=== PATIENT | female | born 1950 | race Two or more races ===

== ENCOUNTER 2017-01-09 23:32 | Inpatient (IN) | payer MEDICARE, BC ==
[~2017-01-09] VITALS: Ht 154.9 cm; Wt 64.4 kg
--- NOTE | 2017-01-09 23:38 | NUR ---
PT A/OX4 BREATHING EFFORTLESSLY ON ROOM AIR, PT STATES SHE HAD LEFT SIDED FACE NUMBNESS GOING DOWN HER LEFT ARM AND THEN IT WENT AWAY, PT DENIES ANY PAIN OR NUMBNESS AT THIS TIME AND STATES SHE FEELS PERFECTLY FINE, MD MADE AWARE WILL CONTINEU TO MONITOR.
[2017-01-10 00:09] LABS: BASOPHILS % (AUTO) 0.3 % (0.0-2.0); EOSINOPHILS # (AUTO) 0.1 /CMM (0.0-0.7); EOSINOPHILS % (AUTO) 1.3 % (0.0-6.0); HEMATOCRIT 42 % (33-45); HEMOGLOBIN 14.1 g/dL (11.5-14.8); LYMPHOCYTES # (AUTO) 1.8 /CMM (0.8-4.8); MEAN CORPUSCULAR HEMOGLOBIN 29 PG (26.0-33.0); MEAN CORPUSCULAR HGB CONC 34 g/dl (31.0-36.0); MEAN CORPUSCULAR VOLUME 87 fL (82-100); MONOCYTES # (AUTO) 0.4 /CMM (0.1-1.30); MONOCYTES % (AUTO) 3.6 % (2.0-12.0); NEUTROPHILS # (AUTO) 8.7 /CMM (1.8-8.9); NEUTROPHILS % (AUTO) 78.8 % (43.0-81.0); PLATELET COUNT (AUTO) 200 /CMM (150-450); RDW COEFFICIENT OF VARIATION 13.1 (11.5-15.0)
[2017-01-10 00:21] LABS: CALCIUM, SERUM 8.6 mg/dL (8.5-10.1); CARBON DIOXIDE 27 mmol/L (21-32); CHLORIDE 104 mmol/L (98-107); CREATININE 0.7 mg/dL (0.6-1.3); GFR 84 mL/min (>60); GLUCOSE 145 mg/dL (74-106); POTASSIUM 4.1 mmol/L (3.5-5.1); SODIUM SERUM 139 mmol/L (136-145); UREA NITROGEN, BLOOD 20 mg/dL (7-18)
--- NOTE | 2017-01-10 00:22 | NUR ---
PT WENT TO CT
[2017-01-10 00:28] LABS: INR 0.93 (0.87-1.13)
[2017-01-10 00:29] LABS: TROPONIN I < 0.017 ng/mL (0.00-0.056)
[2017-01-10] MEDS ORDERED: MAG HYDROX/AL HYDROX/SIMETH 30 ML UDC PO PRN (00:30)
[2017-01-10] MEDS ORDERED: MAGNESIUM HYDROXIDE 30 ML UDC PO PRN (00:30)
[2017-01-10] MEDS ORDERED: HYDROCODONE/APAP 5/325MG 1 EACH TABLET PO PRN (00:30)
[2017-01-10] MEDS ORDERED: Z GUARD REMEDY 2 OZ OINT TP PRN (00:30)
[2017-01-10] MEDS ORDERED: TEMAZEPAM 15 MG CAPSULE PO PRN (00:30)
[2017-01-10] MEDS ORDERED: ONDANSETRON HCL/PF 4 MG/2 ML VIAL IVP PRN (00:30)
[2017-01-10] MEDS ORDERED: ACETAMINOPHEN 325 MG TABLET PO PRN (00:30)
[2017-01-10] MEDS ORDERED: ENOXAPARIN SODIUM 40 MG/0.4 ML DISP.SYRIN SQ SCH ×2 (00:30→21:00)
[2017-01-10] MEDS ORDERED: ASPI-605 PO (00:49)
[2017-01-10] MEDS ORDERED: ATOR20TA PO (00:49)
[2017-01-10] MEDS ORDERED: HYDROCODONE/APAP 5/325MG 1 EACH TABLET ONE (01:01)
[2017-01-10 01:41] LABS: CANNABINOID, URINE NEGATIVE (NEGATIVE); PHENCYCLIDINE SCREEN,URINE NEGATIVE (NEGATIVE)
[2017-01-10] MEDS ORDERED: ENOXAPARIN SODIUM 40 MG/0.4 ML DISP.SYRIN SQ ONE (01:43)
--- NOTE | 2017-01-10 02:13 | NUR ---
RN NOTES: 00:45 RECEIVED PATIENT FROM ER WITH A DIAGNOSIS OF TRANSIENT CEREBRAL ISCHEMIC ATTACK. 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 NORMAL VITAL SIGNS. INTERVIEW WITH THE PATIENT AND ADMISSION PACKAGE ARE DONE. PHYSICAL ASSESSMENT IS DONE. WILL CONTINUE TO MONITOR.
[2017-01-10 04:00] VITALS: BP 114/73
[2017-01-10 06:55] LABS: BASOPHILS % (AUTO) 0.4 % (0.0-2.0); HEMATOCRIT 41 % (33-45); HEMOGLOBIN 14.1 g/dL (11.5-14.8); LYMPHOCYTES # (AUTO) 1.8 /CMM (0.8-4.8); LYMPHOCYTES % (AUTO) 19.2 % (20.0-44.0); MEAN CORPUSCULAR HEMOGLOBIN 30 PG (26.0-33.0); MEAN CORPUSCULAR HGB CONC 34 g/dl (31.0-36.0); MEAN CORPUSCULAR VOLUME 88 fL (82-100); MONOCYTES # (AUTO) 0.2 /CMM (0.1-1.30); MONOCYTES % (AUTO) 2.4 % (2.0-12.0); NEUTROPHILS # (AUTO) 7.2 /CMM (1.8-8.9); PLATELET COUNT (AUTO) 192 /CMM (150-450); RDW COEFFICIENT OF VARIATION 13.4 (11.5-15.0); RED BLOOD CELL COUNT(AUTO) 4.71 MIL/uL (4.0-5.2); WHITE BLOOD COUNT (AUTO) 9.2 K/uL (4.3-11.0)
[2017-01-10 07:03] LABS: CALCIUM, SERUM 8.6 mg/dL (8.5-10.1); CREATININE 0.7 mg/dL (0.6-1.3); MAGNESIUM 1.7 mg/dL (1.8-2.4); PHOSPHORUS 3.7 mg/dL (2.5-4.9)
[2017-01-10 07:12] LABS: THYROID STIMULATING HORMONE 0.661 uIU/mL (0.358-3.74)
[2017-01-10] MEDS ORDERED: PANTOPRAZOLE 40 MG TABLET.DR PO SCH (07:30)
[2017-01-10 08:00] VITALS: BP 103/61
[2017-01-10] MEDS ORDERED: ASPIRIN 325 MG TABLET PO SCH (09:00)
[2017-01-10 10:00] VITALS: BP 95/38
[2017-01-10] MEDS ORDERED: IV NS 0.9% 1,000 ML IV PRN (10:00)
[2017-01-10] MEDS ORDERED: CARVEDILOL 3.125 MG TABLET PO SCH (10:00)
[2017-01-10] MEDS: Magnesium 1GM/D5W 100ML PREMIX 100 ML IV SCH ×2 (10:26→11:00)
[2017-01-10] MEDS ORDERED: IV SET PRIMARY PUMP SET 1 EA INFUS.SET MC ONE (10:34)
[2017-01-10 12:20] VITALS: BP 115/63
[2017-01-10] MEDS ORDERED: LORAZEPAM INJ 2 MG/ML VIAL IV ONE (15:00)
[2017-01-10 16:00] VITALS: BP 106/60
[2017-01-10] MEDS ORDERED: ATORVASTATIN 10 MG TABLET PO SCH (22:00)
== END 2017-01-10 18:49 | disposition home or self-care (01) | DRG 69 ==
LOC: ER 23:37 → TELE1 01-10 00:31
PROVIDERS: ADMIT Nurse Practitioner Acute Care; ATTEND Nurse Practitioner Acute Care
DX: G45.9 Transient cerebral ischemic attack, unspecified (principal); F17.210 Nicotine dependence, cigarettes, uncomplicated; E83.42 Hypomagnesemia; E78.5 Hyperlipidemia, unspecified; Z85.038 Personal history of other malignant neoplasm of large intestine; Z90.49 Acquired absence of other specified parts of digestive tract; I10 Essential (primary) hypertension; Z71.6 Tobacco abuse counseling; I77.819 Aortic ectasia, unspecified site
CPT/HCPCS: 36415; 70450-TC; 70551-TC; 71010-TC; 80048-TC; 80061-TC; 80305; 82962-TC; 83735-TC; 84100-TC; 84443-TC; 84484-TC; 85025-TC; 85730-TC; 87081-TC; 93307-TC; 93880-TC; A4606; J1650; J2060; J3475; Z7610